=== PATIENT | female | born 1995 | race Two or more races ===

== ENCOUNTER 2023-04-20 22:28 | Emergency (ER) | payer SELFPAY ==
[2023-04-20 22:34] VITALS: BP 100/64; PULSE 99; RESP 19; TEMP 99.6; BMI 17.4
[2023-04-20] MEDS ORDERED: ACETAMINOPHEN 160 MG/5 ML *Children Solution PO ONE (22:52)
[2023-04-20] MEDS ORDERED: IBUPROFEN 100 MG/5 ML UNIT DOSE CUPS PO ONE (22:52)
[2023-04-20] MEDS ORDERED: AMOXICILLIN 500 MG CAPSULE (FP) PO ONE (22:53)
[2023-04-20] MEDS ORDERED: AMOX TR/POT CLAV 500MG/125MG TABLETS (FP) ONE (22:59)
[2023-04-20] MEDS ORDERED: IBUPROFEN 100 MG/5 ML UNIT DOSE CUPS ONE (23:05)
== END 2023-04-20 23:10 | disposition home or self-care (01) ==
LOC: JERFT 22:28
DX: R50.9 Fever, unspecified (principal); J02.9 Acute pharyngitis, unspecified
CPT/HCPCS: 87651; 99283-25

== ENCOUNTER 2024-07-04 04:29 | Emergency (ER) | payer SELFPAY ==
[2024-07-04 04:35] VITALS: TEMP 97.9; BMI 17.9
[2024-07-04] MEDS ORDERED: ACETAMINOPHEN INJECTION 100 ML IVPB ONE (05:06)
[2024-07-04] MEDS ORDERED: ONDANSETRON 4 MG/2 ML VIAL ONE (05:06)
[2024-07-04] MEDS: ONDANSETRON 4 MG/2 ML VIAL IVPUSH ONE (05:13)
[2024-07-04] MEDS: ACETAMINOPHEN 1000 MG/100 ML BAG IVPB ONE (05:13)
[2024-07-04] MEDS: SODIUM CHLORIDE 1,000 ML IV STA (05:13)
[2024-07-04 05:17] LABS: EPI CELLS 11 /uL (0-25.1); HYALINE CASTS 6 /uL (0-3.1); URINE APPEARANCE CLOUDY; URINE BACTERIA >9,000 /uL (0-1359); URINE BILIRUBIN NEGATIVE (NEGATIVE); URINE COLOR YELLOW; URINE GLUCOSE (UA) NEGATIVE (NEGATIVE); URINE KETONE 1+ (NEGATIVE); URINE LEUK ESTERASE 2+ (NEGATIVE); URINE NITRITE POSITIVE (NEGATIVE); URINE PROTEIN TRACE (NEGATIVE); URINE RBC 18 /uL (0-23.9); URINE WBC 501 /uL (0-25.8)
[2024-07-04 05:28] LABS: HCG,QUALITATIVE URINE Negative
[2024-07-04 05:31] LABS: POTASSIUM 3.7 mmol/L (3.5-5.1)
[2024-07-04 05:33] LABS: ALBUMIN 4.1 g/dl (3.4-5.0); BLOOD UREA NITROGEN 9.8 mg/dL (7-18); CALCIUM 9.5 mg/dL (8.5-10.1)
[2024-07-04 05:37] LABS: CREATININE 0.6 mg/dL (0.55-1.3)
[2024-07-04 05:38] LABS: BILIRUBIN,TOTAL 0.4 mg/dL (0.2-1); TOT PROT 8.3 g/dl (6.4-8.2)
[2024-07-04] MEDS ORDERED: KETOROLAC TROMETHAMINE 15 MG/ML VIAL ONE (05:40)
[2024-07-04] MEDS: KETOROLAC TROMETHAMINE 15 MG/ML VIAL IVPUSH ONE (05:46)
[2024-07-04] MEDS ORDERED: CEFTRIAXONE 1 GM/50 ML BAG ONE (06:40)
[2024-07-04] MEDS: CEFTRIAXONE 1,000 MG in DEXTROSE 5%-WATER - 50 ML IVPB ONE (06:45)
[2024-07-04 07:38] LABS: BASO % 0.4 % (0-2.0); EOS % 4.1 % (0-4.5); HEMATOCRIT 36.5 % (32.4-45.2); HEMOGLOBIN 12.2 GM/dL (10.7-15.3); LYMPH % 20.1 % (8-40); MCH 28.2 pg (25.7-33.7); MCHC 33.4 g/dl (32.0-36.0); MEAN CELL VOLUME 84.2 fl (80-96); MEAN PLT VOLUME 10.2 fl (7.5-11.1); MONO % 7.8 % (3.8-10.2); NEUT % 67.6 % (42.8-82.8); PLATELET COUNT 220 10^3/uL (134-434); RBC 4.34 M/mm3 (3.60-5.2); RDW 14.6 % (11.6-15.6); WHITE BLOOD COUNT 10.7 K/mm3 (4.0-10.0)
[2024-07-04 09:54] VITALS: BP 95/50; PULSE 53; RESP 16
== END 2024-07-04 09:54 | disposition home or self-care (01) ==
LOC: JER 04:29
PROC: 3E03329 Introduction of Other Anti-infective into Peripheral Vein, Percutaneous Approach (ICD-10-PCS; principal; 2024-07-04)
PROC: 3E033NZ Introduction of Analgesics, Hypnotics, Sedatives into Peripheral Vein, Percutaneous Approach (ICD-10-PCS; 2024-07-04)
PROC: 3E0333Z Introduction of Anti-inflammatory into Peripheral Vein, Percutaneous Approach (ICD-10-PCS; 2024-07-04)
PROC: 3E033GC Introduction of Other Therapeutic Substance into Peripheral Vein, Percutaneous Approach (ICD-10-PCS; 2024-07-04)
PROC: 3E0337Z Introduction of Electrolytic and Water Balance Substance into Peripheral Vein, Percutaneous Approach (ICD-10-PCS; 2024-07-04)
DX: N39.0 Urinary tract infection, site not specified (principal); N12 Tubulo-interstitial nephritis, not specified as acute or chronic; R35.0 Frequency of micturition; R11.0 Nausea; R10.9 Unspecified abdominal pain
CPT/HCPCS: 36415; 74176-TC; 80053; 81003; 84703; 85025; 87086; 87186; 99284-25; J0131

== ENCOUNTER 2024-07-08 01:13 | Inpatient (IN) | payer OTHER ==
[2024-07-08] MEDS ORDERED: KETOROLAC TROMETHAMINE 15 MG/ML VIAL ONE (02:03)
[2024-07-08] MEDS: ACETAMINOPHEN 500 MG TABLET (FP) PO ONE (02:15)
[2024-07-08] MEDS: KETOROLAC TROMETHAMINE 15 MG/ML VIAL IVPUSH ONE (02:15)
[2024-07-08] MEDS: LACTATED RINGERS SOLUTION 1000 ML INFUS.BAG IV ONE ×2 (02:15→06:15)
[2024-07-08] MEDS ORDERED: ACETAMINOPHEN 500 MG TABLET (FP) ONE (02:17)
[2024-07-08 02:21] LABS: BASO % 0.2 % (0-2.0); EOS % 0.7 % (0-4.5); HEMATOCRIT 33.2 % (32.4-45.2); HEMOGLOBIN 11.1 GM/dL (10.7-15.3); LYMPH % 8.8 % (8-40); MCH 27.2 pg (25.7-33.7); MCHC 33.3 g/dl (32.0-36.0); MEAN CELL VOLUME 81.6 fl (80-96); MEAN PLT VOLUME 8.9 fl (7.5-11.1); MONO % 4.3 % (3.8-10.2); PLATELET COUNT 178 10^3/uL (134-434); RBC 4.08 M/mm3 (3.60-5.2); WHITE BLOOD COUNT 5.5 K/mm3 (4.0-10.0)
[2024-07-08 02:31] LABS: INR 1.19 (0.83-1.09); PROTHROMBIN TIME (PATIENT) 13.4 SEC (9.7-13.0)
[2024-07-08 02:34] LABS: ACTIVATED PTT 29.1 SECONDS (25.2-36.5)
[2024-07-08 02:39] LABS: POTASSIUM 3.2 mmol/L (3.5-5.1)
[2024-07-08 02:41] LABS: ALBUMIN 3.5 g/dl (3.4-5.0); CALCIUM 8.9 mg/dL (8.5-10.1)
[2024-07-08 02:42] LABS: BLOOD UREA NITROGEN 7.2 mg/dL (7-18)
[2024-07-08 02:45] LABS: CREATININE 0.6 mg/dL (0.55-1.3)
[2024-07-08 02:46] LABS: BILIRUBIN,TOTAL 0.6 mg/dL (0.2-1); TOT PROT 7.3 g/dl (6.4-8.2)
[2024-07-08] MEDS: KCL 10 MEQ IVPB 10 MEQ/100 ML INFUS.BAG IVPB SCH (03:21)
[2024-07-08] MEDS: ONDANSETRON 4 MG/2 ML VIAL IVPUSH ONE ×2 (03:45→04:42)
[2024-07-08 03:51] LABS: URINE APPEARANCE CLEAR; URINE BILIRUBIN NEGATIVE (NEGATIVE); URINE COLOR YELLOW; URINE GLUCOSE (UA) NEGATIVE (NEGATIVE); URINE KETONE NEGATIVE (NEGATIVE); URINE LEUK ESTERASE NEGATIVE (NEGATIVE); URINE NITRITE NEGATIVE (NEGATIVE); URINE PROTEIN NEGATIVE (NEGATIVE); URINE UROBILINOGEN 0.2 mg/dL (0.2-1.0)
[2024-07-08] MEDS ORDERED: CEFTRIAXONE 1 GM/50 ML BAG ONE ×2 (04:17→10:07)
[2024-07-08] MEDS ORDERED: POTASSIUM CHLORIDE TABS 20 MEQ TABLET.ER (FP) PO ONE (04:24)
[2024-07-08] MEDS: CEFTRIAXONE 1,000 MG in DEXTROSE 5%-WATER - 50 ML IVPB ONE (04:25)
[2024-07-08] MEDS ORDERED: ONDANSETRON 4 MG/2 ML VIAL ONE (04:36)
[2024-07-08] MEDS: POTASSIUM CHLORIDE TABS 20 MEQ TABLET.ER (FP) PO ONE ×2 (05:14→10:21)
[2024-07-08] MEDS ORDERED: CALCIUM GLUC IN NACL, ISO-OSM 1 GM/50 ML BAG IVPB ONE (08:47)
[2024-07-08] MEDS: SODIUM CHLORIDE 1,000 ML IV STA ×2 (09:48)
[2024-07-08] MEDS: CEFTRIAXONE 1 GM in DEXTROSE 5%-WATER - 50 ML IVPB SCH (10:21)
[2024-07-08] MEDS ORDERED: ONDANSETRON 4 MG/2 ML VIAL IVPUSH PRN (13:21)
[2024-07-08 13:33] LABS: MAGNESIUM 1.5 mg/dL (1.8-2.4)
[2024-07-08 13:37] LABS: PHOSPHOROUS 1.4 mg/dL (2.5-4.9)
[2024-07-08] MEDS: LACTATED RINGERS SOLUTION 1,000 ML/1,000 ML INFUS.BAG IV SCH (14:58)
[2024-07-08] MEDS: MAGNESIUM SULF 50% (8.12 MEQ/2 ML-1 GM VIAL) IVPB ONE (14:59)
[2024-07-08] MEDS: POTASSIUM PHOSPHATE 30 MM in SODIUM CHLORIDE 500 ML IVPB ONE (16:39)
[2024-07-08 18:11] VITALS: BMI 18.6
[2024-07-09 07:27] LABS: BASO % 0.4 % (0-2.0); EOS % 1.5 % (0-4.5); HEMOGLOBIN 9.2 GM/dL (10.7-15.3); MCH 27.1 pg (25.7-33.7); MCHC 32.7 g/dl (32.0-36.0); MEAN CELL VOLUME 82.9 fl (80-96); MONO % 8.6 % (3.8-10.2); NEUT % 65.5 % (42.8-82.8); PLATELET COUNT 185 10^3/uL (134-434); RBC 3.38 M/mm3 (3.60-5.2); RDW 15.2 % (11.6-15.6); WHITE BLOOD COUNT 8.4 K/mm3 (4.0-10.0)
[2024-07-09 07:58] LABS: CHLORIDE 109 mmol/L (98-107); POTASSIUM 3.8 mmol/L (3.5-5.1); SODIUM 139 mmol/L (136-145)
[2024-07-09] MEDS ORDERED: KETOROLAC TROMETHAMINE 15 MG/ML VIAL IVPUSH PRN (08:00)
[2024-07-09 08:05] LABS: CALCIUM 8.4 mg/dL (8.5-10.1)
[2024-07-09 08:06] LABS: ANION GAP 8 mmol/L (4-13); CO2 22 mmol/L (21-32); GLUCOSE,RANDOM 96 mg/dL (74-106)
[2024-07-09 08:09] LABS: CREATININE 0.3 mg/dL (0.55-1.3); PHOSPHOROUS 3.3 mg/dL (2.5-4.9); SGOT/AST 58 U/L (15-37); SGPT/ALT 81 U/L (13-61)
[2024-07-09 08:11] LABS: BILIRUBIN,TOTAL 0.4 mg/dL (0.2-1); TOT PROT 5.9 g/dl (6.4-8.2)
[2024-07-09 08:12] LABS: ALK PHOS 100 U/L (45-117)
[2024-07-09] MEDS: ACETAMINOPHEN 1000 MG/100 ML BAG IVPB PRN (08:18)
[2024-07-09 08:24] LABS: ALBUMIN 2.6 g/dl (3.4-5.0); BLOOD UREA NITROGEN 2.7 mg/dL (7-18)
[2024-07-09] MEDS: AMINO ACIDS/PROTEIN HYDROLYS 30 ML LIQUID.PKT PO SCH (09:42)
[2024-07-10 10:19] LABS: BASO % 0.3 % (0-2.0); EOS % 4.1 % (0-4.5); HEMOGLOBIN 10.8 GM/dL (10.7-15.3); LYMPH % 21.2 % (8-40); MCH 27.3 pg (25.7-33.7); MCHC 32.6 g/dl (32.0-36.0); MEAN CELL VOLUME 83.6 fl (80-96); NEUT % 66.4 % (42.8-82.8); PLATELET COUNT 274 10^3/uL (134-434); RBC 3.95 M/mm3 (3.60-5.2); RDW 15.3 % (11.6-15.6); WHITE BLOOD COUNT 9.6 K/mm3 (4.0-10.0)
[2024-07-10 10:44] LABS: POTASSIUM 3.7 mmol/L (3.5-5.1)
[2024-07-10 10:56] LABS: CALCIUM 9.6 mg/dL (8.5-10.1)
[2024-07-10 10:57] LABS: ALBUMIN 3.1 g/dl (3.4-5.0); BLOOD UREA NITROGEN 6.6 mg/dL (7-18)
[2024-07-10 11:05] LABS: CREATININE 0.5 mg/dL (0.55-1.3)
[2024-07-10 11:07] LABS: BILIRUBIN,TOTAL 0.3 mg/dL (0.2-1); TOT PROT 7.2 g/dl (6.4-8.2)
[2024-07-10 14:39] VITALS: BP 90/53; PULSE 76; RESP 19; TEMP 98.2
== END 2024-07-10 16:00 | disposition home or self-care (01) | DRG 463 ==
LOC: JER 01:13 → JERBED 06:26 → J7W 10:49 → OBSVTOIN 10:59 → J7W 07-09 10:31
PROVIDERS: ADMIT Internal Medicine; ATTEND Nurse Practitioner
DX: N10 Acute pyelonephritis (principal); E87.6 Hypokalemia
CPT/HCPCS: 0241U-QW; 36415; 74176-TC; 80053; 81003; 83735; 84100; 84703; 85025; 85610; 85730; 86850; 86900; 86901; 87086; 99285-25; G0378; J0131